=== PATIENT | male | born 1995 | race Caucasian/White ===

== ENCOUNTER 2016-07-01 02:21 | Emergency (ER) | payer MEDICAID ==
--- NOTE | 2016-07-01 02:30 | EDPHY ---
H & P Source: Patient, Police, EMS - Medical/Surgical History Hx Asthma: No Hx Chronic Respiratory Disease: No Hx Diabetes: No Hx Cardiac Disease: No Hx Renal Disease: No Hx Cirrhosis: No Hx Alcoholism: No Hx HIV/AIDS: No Hx Splenectomy or Spleen Trauma: No Other PMH: BOTOX BLADDER INJECTION OCT 02 2013. 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 It is reported by EMS that he was speaking to people at the bus stop saying that he did cocaine and Xanax and drank alcohol. During the time of conversation with other people the bus stop he started to get very lethargic and unresponsive they called 911. EMS arrived he responded to painful stimuli but not verbal stimuli they brought him here in the emergency room. They did give him Narcan which did not benefit him. Upon arrival here in the emergency room he does respond to painful stimuli he is on a full monitor. He appears very sleepy. Past Medical History: Unknown medical history Past Surgical History: Unknown surgical history Social History: Admits to doing cocaine, alcohol, Xanax Family History: Noncontributory ROS REVIEW OF SYSTEMS: A comprehensive 10 point review of systems is otherwise negative aside from elements mentioned in the history of present illness. Exam Constitutional lethargic, triage nursing summary reviewed, vital signs reviewed Eyes normal conjunctivae and sclera, EOMI, 3 mm equal HENT normal inspection, atraumatic, moist mucus membranes, no epistaxis, neck supple/ no meningismus, no raccoon eyes. Respiratory clear to auscultation bilaterally, normal breath sounds, no respiratory distress, no wheezing. Cardiovascular rate normal, regular rhythm, no murmur, no edema, distal pulses normal. Gastrointestinal soft, non-tender, no rebound, no guarding, normal bowel sounds, no distension, no pulsatile mass. Genitourinary no CVA tenderness. Musculoskeletal no midline vertebral tenderness, full range of motion, no calf swelling, no tenderness of extremities, no meningismus, good pulses, neurovascularly intact. Skin pink, warm, & dry, no rash, skin atraumatic. Neurologic lethargic, does not respond to verbal stimuli however does respond to painful stimuli Psychiatric normal mood/affect. Heme/Lymph/Immune no lymphadenopathy. Differential Diagnosis: includes but is not limited to in a particular order, drug overdose, cocaine intoxication, benzodiazepine overdose, alcohol intoxication, polysubstance abuse, intracranial bleed Medical Decision Making: this patient be placed on full athletic monitor, patient had a CT scan of his head to rule out significant trauma. Will check blood work including alcohol level and drug screen. Re-evaluation: CT scan of the head without IV contrast for trauma. The results of the study are negative for acute traumatic injury. The study was read by Dr. Gayle. I viewed the images myself on the PACS system. CT scan of the cervical spine without IV contrast for trauma The results of the study are negative for acute traumatic injury The study was read by Dr. Gayle I viewed the images myself on the PACS system. 0427: Re-examination at this time he is still very sleepy however he does respond to painful stimuli. His alcohol level was very low he is positive for cocaine. he was telling EMS and bystanders at the bus stop that he did Xanax. He is still at this time protecting his airway. He is very sleepy. Will continue to closely monitor. 0547: re-examination at this time he does respond to verbal stimuli. He is still somnolent. Parents at bedside. I have updated them. 0625: this patient is a indwelling Jacques in place at this time. It was noted that this patient was hypertensive at 1 point most likely due to neurogenic bladder retaining urine. He did have Jacques catheter placed a 1000 cc of urine was removed. His blood pressure greatly improved after this. He will need to have his Jacques catheter removed prior to discharge. 0651: Patient signed over to Dr. Alfaro at 7am shift change. Patient still sobering. (Fahad Rodriguez) Constitutional: Initial Vital Signs Temperature (C) 36.3 C 07/01/16 02:31 Heart Rate 73 07/01/16 02:31 Respiratory Rate 16 07/01/16 02:31 Blood Pressure 139/103 H 07/01/16 02:31 O2 Sat (%) 95 07/01/16 02:31 O2 Delivery Mode Nasal Cannula O2 (L/minute) 2 Allergies/Adverse Reactions: No Known Allergies Allergy (Unverified 11/12/13 14:55) Home Medications: Medication Instructions Recorded Cephalexin [Keflex] 500 mg PO QID #40 cap 11/12/13 Dentraline 11/12/13 Gabapentin [Neurontin 100 MG (RX)] 100 mg PO HS 11/12/13 Indomethacin [Indocin 25 mg (RX)] 25 mg PO 11/12/13 Medical Decision Making Other Provider: Patient's care transferred to al at 7:[address] Fahad Rodriguez. I evaluated the patient with him. He is somnolecent but arousable. He will respond to commands. He lifted his arms and head up in the air with painful stimulation. He seems to be improving. We will continue to observe. He admits to taking a large amount of Xanax but it does not appear in his urine. Urinalysis may have been premature compared to his ingestion. 1:15 p.m. the patient is significantly improved. He is waking to verbal stimuli. He is answering questions. He is asking what happened. His parents are here. The patient is not yet ready to be discharged. We will continue to observe. 2:50 p.m. the patient is doing much better. He is easily arousable. He is able to sit up in his wheelchair safely. Parents are eager to take him home. ( Jose Miguel Alfaro) - Data Points Laboratory Results: Laboratory Results 07/01/16 02:20 07/01/16 02:20 07/01/16 07/01/16 03:35 02:20 WBC 9.26 10^3/uL (3.80-9.50) RBC 5.45 10^6/uL (4.40-6.38) Hgb 17.1 g/dL (13.7-17.5) Hct 49.6 % (40.0-51.0) MCV 91.0 fL (81.5-99.8) MCH 31.4 pg (27.9-34.1) MCHC 34.5 g/dL (32.4-36.7) RDW 13.1 % (11.5-15.2) Plt Count 223 10^3/uL (150-400) MPV 10.1 fL (8.7-11.7) Neut % (Auto) 69.4 % (39.3-74.2) Lymph % (Auto) 19.1 % (15.0-45.0) Wilson % (Auto) 9.3 % (4.5-13.0) Eos % (Auto) 1.5 % (0.6-7.6) Baso % (Auto) 0.5 % (0.3-1.7) Nucleat RBC Rel Count 0.0 % (0.0-0.2) Absolute Neuts (auto) 6.42 10^3/uL (1.70-6.50) Absolute Lymphs (auto) 1.77 10^3/uL (1.00-3.00) Absolute Monos (auto) 0.86 H 10^3/uL (0.30-0.80) Absolute Eos (auto) 0.14 10^3/uL (0.03-0.40) Absolute Basos (auto) 0.05 10^3/uL (0.02-0.10) Absolute Nucleated RBC 0.00 10^3/uL (0-0.01) Immature Gran % 0.2 % (0.0-1.1) Immature Gran # 0.02 10^3/uL (0.00-0.10) Sodium 141 mEq/L (134-144) Potassium 4.2 mEq/L (3.5-5.2) Chloride 104 mEq/L (97-110) Carbon Dioxide 22 mEq/l (22-31) Anion Gap 15 mEq/L (8-16) BUN 16 mg/dL (7-23) Creatinine 1.2 mg/dL (0.7-1.3) Estimated GFR > 60 Glucose 81 mg/dL (70-100) Calcium 9.6 mg/dL (8.5-10.4) Salicylates < 1.0 L mg/dL (2.0-20.0) Urine Opiates Screen NEGATIVE (NEGATIVE) Acetaminophen < 10 L mcg/mL (10.0-30.0) Urine Barbiturates NEGATIVE (NEGATIVE) Ur Phencyclidine Scrn NEGATIVE (NEGATIVE) Ur Amphetamine Screen NEGATIVE (NEGATIVE) U Benzodiazepines Scrn NEGATIVE (NEGATIVE) Urine Cocaine Screen NON-NEGATIVE H (NEGATIVE) U Marijuana (THC) Screen NEGATIVE (NEGATIVE) Ethyl Alcohol 20 H mg/dL (0-10) Medications Given: Discontinued Medications Sodium Chloride (Ns) 1,000 mls @ 0 mls/hr IV ONCE ONE PRN Reason: Wide Open Stop: 07/01/16 02:34 Last Admin: 07/01/16 02:46 Dose: 1,000 mls Sodium Chloride (Ns) 1,000 mls @ 0 mls/hr IV ONCE ONE PRN Reason: Wide Open Stop: 07/01/16 04:32 Last Admin: 07/01/16 05:30 Dose: 1,000 mls Departure - Departure Disposition: Home, Routine, Self-Care Clinical Impression: Cocaine abuse, Benzodiazepine abuse Alcoholic intoxication Qualifiers: Complication of substance-induced condition: uncomplicated Qualifier Code: ( F10.120) Alcohol abuse with intoxication, uncomplicated Condition: Fair Instructions: Alcohol Intoxication (ED), Benzodiazepine Abuse (ED), Cocaine Abuse (ED) Additional Instructions: 1. Stay well-hydrated drink lots of fluids. Referrals: Derrick Jeronimo MD [Primary Care Provider] - As per Instructions
[2016-07-01] MEDS ORDERED: NS 1,000 ML IV ONE ×2 (02:33→04:31)
[2016-07-01 02:51] LABS: % IMMATURE GRANULYOCYTES 0.2 % (0.0-1.1); ABSOLUTE IMMATURE GRANULOCYTES 0.02 10^3/uL (0.00-0.10); ADD DIFF? NO; ADD MORPH? NO; ADD SCAN? NO; ATYPICAL LYMPHOCYTE FLAG 0 (0-99); FRAGMENT RBC FLAG 0 (0-99); HEMATOCRIT 49.6 % (40.0-51.0); HEMOGLOBIN 17.1 g/dL (13.7-17.5); LEFT SHIFT FLG 0 (0-99); LIPEMIA HEMOLYSIS FLAG 90 (0-99); MEAN CELL HEMOGLOBIN 31.4 pg (27.9-34.1); MEAN CELL HEMOGLOBIN CONCENTR. 34.5 g/dL (32.4-36.7); MEAN PLATELET VOLUME 10.1 fL (8.7-11.7); PLATELET CLUMPS FLAG 10 (0-99); PLATELET COUNT 223 10^3/uL (150-400); RED BLOOD CELL COUNT 5.45 10^6/uL (4.40-6.38); RED CELL DISTRIBUTION WIDTH 13.1 % (11.5-15.2)
[2016-07-01 03:16] LABS: ANION GAP 15 mEq/L (8-16); CALCIUM 9.6 mg/dL (8.5-10.4); CARBON DIOXIDE 22 mEq/l (22-31); CHLORIDE 104 mEq/L (97-110); CREATININE 1.2 mg/dL (0.7-1.3); ETHANOL SERUM 20 mg/dL (0-10); GLOMERULAR FILTRATION RATE > 60; GLUCOSE 81 mg/dL (70-100); POTASSIUM 4.2 mEq/L (3.5-5.2); SALICYLATE < 1.0 mg/dL (2.0-20.0); SODIUM 141 mEq/L (134-144)
[2016-07-01] MEDS ORDERED: NALOXONE HCL 0.4 MG/ML INJ ONE (04:20)
[2016-07-01] MEDS ORDERED: ONDANSETRON 4 MG/2 ML VIAL ONE (04:23)
[2016-07-01 07:18] VITALS: RESP 16
[2016-07-01 08:54] VITALS: O2SAT 97
[2016-07-01 11:21] VITALS: PULSE 57
--- NOTE | 2016-07-01 12:26 | CT ---
Unenhanced CT Scan of the Brain Clinical History: 21-year-old male who was at the bus stop this morning and indicated that he had cocaine and Xanax, and was also inebriated, and then was found subsequently slumped over in his wheelchair, and is currently unresponsive. Technique: Standard unenhanced axial CT images were acquired from the skull base through the skull vertex, reformatted at 5.00 and 1.50 mm increments, and reviewed in bone, brain, and subdural windows. The DFOV is 26 cm. Parasagittal and paracoronal reconstructed images were reviewed on the workstation. A dose reduction protocol was used. Comparison Studies: This study is compared with previous CT imaging of the brain and cervical spine dated March 25, 2014 and January 28, 2015, and also MR imaging of the cervical spine dated March 25, 2014. Findings: Again, the ventricles and basilar cisterns are normal in size and symmetrical in configuration. There is no midline shift, or other evidence of mass effect. There is no acute or subacute abnormal intra- or extraaxial blood collection or infarction. The brainstem and cerebellum are normal. The craniocervical junction, sella turcica, pineal gland, and the orbits are unremarkable. The mastoids are patent. There is minimal mucosal thickening in the floor of the right maxillary sinus. The other paranasal sinuses are patent. There is no acute skull fracture. Impression: There is no acute intracranial abnormality. If there is further clinical concern regarding the patient's brain or cervical spine, MR imaging could be considered. I provided a preliminary interpretation to Dr. Fahad Rodriguez at 4:00 a.m. on Sunday, July 01, 2016 regarding the above findings. My final interpretation is concordant with my initial impression. [id number] POS 99 MTDD
--- NOTE | 2016-07-01 12:27 | CT ---
Unenhanced CT Scan of the Cervical Spine Clinical History: 21-year-old male who sustained prior remote trauma in [place] and has had a cervical arthrodesis. He was at the bus stop this morning and indicated that he had taken cocaine and Xanax, and was also inebriated, and then was found slumped over in his wheelchair, and is currently unresponsive. Technique: Standard unenhanced axial CT images were acquired from the level of the clivus caudally to the caudal portion of T2, reformatted at 0.60 and 1.50 mm increments, and reviewed in bone, soft tissue, and lung windows. Parasagittal and paracoronal reconstructed images were reviewed on the workstation. The DFOV is 15.9 cm. A dose reduction protocol was used. Comparison Studies: This study is compared with previous CT imaging of the brain and cervical spine dated March 25, 2014 and January 28, 2015, and also with MR imaging of the cervical spine dated March 25, 2014. Findings: As on the preceding studies, the patient has had arthrodesis from C5- T1 with a bony cage noted from the caudal portion of C5 through the cephalad aspect of the T1 centrum and an anterior cervical fusion plate secured by transcervical screws terminating in the C5 and T1 centra. There is a large incompletely-bridging osteophyte emanating off the anterosuperior C5 centrum, extending to the anterior margin of C4. There is no acute fracture or dislocation. There is no facet malalignment. The interspinous distances are normal. The prevertebral soft tissues are normal. The craniocervical junction is normal. The atlantoaxial alignment and the base and tip of the dens are normal. The predental space is normal. There is no prevertebral hematoma, epidural hematoma, or secondarily acquired canal stenosis. Impression: Sequela of prior remote postsurgical arthrodesis from C5-T1, stable from exams in 2013 and 2014, with no acute cervical osseous abnormality identified. If there is further clinical concern regarding the patient's brain or cervical spine, MR imaging could be considered. I provided a preliminary interpretation to Dr. Fahad Rodriguez at 4:00 a.m. on July 01, 2016 regarding the above findings. My final interpretation is concordant with my initial impression. [id number] POS 99 MTDD
[2016-07-01 14:54] VITALS: BP 118/75; TEMP 98.2
== END 2016-07-01 14:53 | disposition home or self-care (01) ==
LOC: EDUNIT#
DX: F14.10 Cocaine abuse, uncomplicated (principal); F13.10 Sedative, hypnotic or anxiolytic abuse, uncomplicated; F10.120 Alcohol abuse with intoxication, uncomplicated
CPT/HCPCS: 80305; G0480; J2310; J2405

== ENCOUNTER 2016-09-10 14:11 | Emergency (ER) | payer MEDICAID ==
[2016-09-10 14:19] VITALS: BP 89/60; PULSE 96; RESP 16; TEMP 98.1; O2SAT 92
--- NOTE | 2016-09-10 14:28 | EDPHY ---
H & P Time Seen by Provider: 09/10/16 14:22 HPI/ROS: CHIEF COMPLAINT: Right elbow pain HISTORY OF PRESENT ILLNESS: 21-year-old male history of C7 paraplegia, wheelchair-bound, sustained a mechanical fall out of his wheelchair yesterday onto his right elbow. He has been able to continue pushing myself in his wheelchair but notes dorsal soft tissue swelling and pain with range of motion. He also sustained an abrasion to the dorsal elbow. Tetanus up-to-date. No proximal distal pain or injury. Not a syncopal episode. PRIMARY CARE PROVIDER: Dr. Derrick Jeronimo PHYSICAL EXAM (Prior to examination, patient consented to physical exam, hands were washed and my usual and customary physical exam procedures followed) 1) GENERAL: Well-developed, well-nourished, alert and oriented. Appears to be in no acute distress. 2) HEAD: Normocephalic 3) HEENT: Pupils equal, round, reactive to light bilaterally. 4) LUNGS: Breathing comfortably. 5) MUSCULOSKELETAL: Right dorsal elbow soft tissue swelling and abrasion. Tender to palpation radial head. Full range of motion albeit with pain. Soft compartments. Normal coloration. No erythema. No induration. No signs of cellulitis or septic bursitis. 6) SKIN: abrasion dorsal elbow 7) VASCULAR: pulses and cap refill present are brisk 8) NEUROLOGIC: Radial, ulnar, median nerve function intact with no deficits appreciated on exam DIFFERENTIAL DIAGNOSIS: in no particular order including but not limited to fracture, sprain, compartment syndrome Xray of the right elbow interpreted by myself: no definitive acute osseous abnormality . Smoking Status: Never smoked Constitutional: Initial Vital Signs Temperature (C) 36.7 C 09/10/16 14:16 Heart Rate 96 09/10/16 14:16 Respiratory Rate 16 09/10/16 14:16 Blood Pressure 89/60 L 09/10/16 14:16 O2 Sat (%) 92 09/10/16 14:16 O2 Delivery Mode Room Air Allergies/Adverse Reactions: No Known Allergies Allergy (Unverified 11/12/13 14:55) Home Medications: Medication Instructions Recorded Dentraline 11/12/13 MDM/Departure - MDM Diagnostics: Images reviewed myself ED Course/Re-evaluation: Patient re-evaluated with serial exams. Discussed his negative imaging results. Discussed possibility of occult fracture. Because he is wheelchair- bound do not think that placed the patient a sling is appropriate as he would be unable to self transport. Did recommend he follow-up with [facility], ice packs on the area. He has no signs septic bursitis. Acetaminophen and ibuprofen for pain control. - Depart Disposition: Home, Routine, Self-Care Clinical Impression: Right elbow pain Abrasion of right elbow Qualifiers: Encounter type: initial encounter Qualified Code(s): S50.311A - Abrasion of right elbow, initial encounter Condition: Good Instructions: Abrasion (ED), Elbow Sprain (ED) Additional Instructions: Return to the ER if you develop redness, swelling, discharge, warmth to the wound, red streaks going up your arm , or any other symptoms that concern you. Referrals: To Verma MD [Medical Doctor] - 2-3 days without fail (Dr. To Verma is an orthopedic surgeon at [facility])
== END 2016-09-10 14:57 | disposition home or self-care (01) ==
DX: S50.311A Abrasion of right elbow, initial encounter (principal); W05.0XXA Fall from non-moving wheelchair, initial encounter

== ENCOUNTER → 2016-11-24 | Outpatient (CLI) | payer MEDICAID, OTHER | LOC: FIMAGING 16:11 | PROVIDERS: ATTEND Physician Assistant | DX: M25.521 Pain in right elbow (principal); M79.89 Other specified soft tissue disorders ==

== ENCOUNTER → 2017-06-27 | Outpatient (CLI) | payer MEDICAID ==
[~2017-06-27] MED LIST: GADOBUTROL 10 ML VIAL IVP ONE
== END ==
LOC: FIMAGING 19:39
PROVIDERS: ATTEND Internal Medicine Infectious Disease
DX: Z48.89 Encounter for other specified surgical aftercare (principal); M70.21 Olecranon bursitis, right elbow; M86.9 Osteomyelitis, unspecified
CPT/HCPCS: A9585

== ENCOUNTER 2017-07-07 08:14 | Inpatient (IN) | payer OTHER, MEDICAID ==
[~2017-07-07 08:14] MED LIST changes: -GADOBUTROL 10 ML VIAL IVP ONE; +LR 1,000 ML IV ONE; +ceFAZolin 2 GM/SWFI 2 GM/20 ML SYR IVP ONE
--- NOTE | 2017-07-07 08:34 | EDPHY ---
ED Progress Note Narrative: Patient is here for orthopedic procedure preoperative only. He is alert and normally conversant. He declines medical screening examination by ER physician.
[2017-07-07] MEDS ORDERED: ceFAZolin 2 GM/SWFI 20 ML SYR IVP ONE (08:59)
--- NOTE | 2017-07-07 09:00 | PDANEPAE ---
ANE History of Present Illness 22 year old paraplegic male presents for Washout of elbow. ANE Past Medical History - Cardiovascular History Hx Hypertension: No Hx Arrhythmias: No Hx Chest Pain: No Hx Coronary Artery / Peripheral Vascular Disease: No Hx CHF / Valvular Disease: No Hx Palpitations: No - Pulmonary History Hx COPD: No Hx Asthma/Reactive Airway Disease: No Hx Recent Upper Respiratory Infection: No Hx Oxygen in Use at Home: No Hx Sleep Apnea: No Sleep Apnea Screening Result - Last Documented: Negative Pulmonary History Comment: limited ability to cough due to spinal cord injury - Neurologic History Hx Cerebrovascular Accident: No Hx Seizures: No Hx Dementia: No Neurologic History Comment: spinal cord injury - Endocrine History Hx Diabetes: No - Renal History Hx Renal Disorders: Yes Renal History Comment: neurogenic bladder - Liver History Hx Hepatic Disorders: No - Neurological & Psychiatric Hx Hx Neurological and Psychiatric Disorders: No - Cancer History Hx Cancer: No - Congenital Disorder History Hx Congenital Disorders: No - GI History Hx Gastrointestinal Disorders: Yes Gastrointestinal History Comment: acid reflux - Other Health History Other Health History: USING RX FOR CONCENTRATION AT SCHOOL. PE 2012 - Chronic Pain History Chronic Pain: Yes - Surgical History Prior Surgeries: neck C5-T1 2012. CYSTO WITH bladder botox X2 ANE Review of Systems Review of Systems: - Exercise capacity Exercise capacity: limited by disability ANE Patient History - Allergies Allergies/Adverse Reactions: No Known Allergies Allergy (Verified 07/07/17 08:16) - Home Medications Home medications: home medication list seen and reviewed Home Medications: Vesicare 10 mg 07/06/17 [Last Taken Unknown] - NPO status NPO Status: no food or drink >8 hours NPO Since - Liquids (Date): 07/06/17 NPO Since - Liquids (Time): 23:00 NPO Since - Solids (Date): 07/06/17 NPO Since - Solids (Time): 23:00 - Anes Hx Anes Hx: no prior problems - Smoking Hx Smoking Status: Never smoked Marijuana use: No - Alcohol Use Alcohol Use: None - Family Anes Hx Family Anes Hx: neg - N/A Family Hx Anesthesia Complications: none ANE Labs/Vital Signs - Vital Signs Vital Signs: reviewed preoperatively; see RN documention for details Blood Pressure: 89/56 Heart Rate: 50 Respiratory Rate: 14 O2 Sat (%): 94 Height: 185.42 cm Weight: 63.503 kg ANE Physical Exam - Airway Neck exam: decreased ROM Mallampati Score: Class 2 Mouth exam: normal dental/mouth exam - Pulmonary Pulmonary: no respiratory distress - Cardiovascular Cardiovascular: regular rate and rhythym - ASA Status ASA Status: III ANE Anesthesia Plan Anesthesia Plan: GA w LMA Total IV Anesthesia: No
--- NOTE | 2017-07-07 10:16 | PDHPUP ---
History & Physical Update H&P update statement: This history and physical update is based on an assessment of the patient which was completed after admission or registration (within 24 hours), but prior to the surgery/procedure. H&P update: H&P reviewed & patient examined, no change in patient's condition since H&P completed
[2017-07-07] MEDS ORDERED: MIDAZOLAM 2 MG/2 ML VIAL ONE (10:27)
[2017-07-07] MEDS ORDERED: fentaNYL 100 MCG/2 ML INJ ONE ×2 (10:27→12:28)
[2017-07-07] MEDS ORDERED: PROPOFOL 200 MG/20 ML VIAL ONE (10:27)
[2017-07-07] MEDS ORDERED: ONDANSETRON DISINTEGRATING 4 MG TAB PO PRN (10:29)
[2017-07-07] MEDS ORDERED: ONDANSETRON 4 MG/2 ML VIAL IVP PRN ×2 (10:29→11:25)
[2017-07-07] MEDS ORDERED: LR 1,000 ML IV SCH (10:30)
[2017-07-07] MEDS ORDERED: BUPIVACAINE/EPI 0.5% 30 ML SDV ONE (11:06)
[2017-07-07] MEDS ORDERED: HYDROmorphONE/DILAUDID 1 MG/ML INJ IVP PRN (11:25)
[2017-07-07] MEDS ORDERED: PHENYLEPHRINE HCL 100 MCG/ML SYR IVP PRN (11:25)
[2017-07-07] MEDS ORDERED: NALOXONE HCL 0.4 MG/ML INJ IVP PRN (11:25)
[2017-07-07] MEDS ORDERED: DIAZEPAM 10 MG/2 ML SYR IVP PRN (11:25)
[2017-07-07] MEDS ORDERED: OXYCODONE/APAP 5/325 TAB PO PRN (11:25)
[2017-07-07] MEDS: fentaNYL 100 MCG/2 ML INJ IVP PRN ×2 (12:33→12:45)
[2017-07-07] MEDS ORDERED: KETOROLAC 15 MG/1 ML SDV ONE (12:37)
[2017-07-07] MEDS ORDERED: KETOROLAC 30 MG/1 ML SDV ONE (12:41)
[2017-07-07] MEDS: KETOROLAC 30 MG/1 ML SDV IVP PRN ×2 (12:46→19:43)
--- NOTE | 2017-07-07 13:30 | GOP ---
[f rep st] OPERATIVE REPORT DATE OF OPERATION: 07/07/2017 SURGEON: Amrit Kay MD ANESTHESIA: General. PREOPERATIVE DIAGNOSIS: 1. Right elbow open wound. 2. Right elbow olecranon osteomyelitis. 3. Right elbow septic olecranon bursitis POSTOPERATIVE DIAGNOSIS: 1. Right elbow open wound. 2. Right elbow olecranon osteomyelitis. 3. Right elbow septic olecranon bursitis PROCEDURE PERFORMED: 1. Irrigation and debridement of skin and subcutaneous tissue, fascia and bone of the right elbow along with opening of bone cortex for osteomyelitis of the olecranon. 2. Irrigation and debridement of right olecranon bursa. 3. Application of negative pressure wound VAC device less than 50 sq/cm. FINDINGS: ESTIMATED BLOOD LOSS: 5 cc. INDICATIONS: This patient is a 22-year-old male who is a C7 paraplegic. He is well known to our practice. He had several I and D's of his infected right olecranon bursa performed during the spring and summer last year. At the last I and D, he had some issues healing the wound. The wound was nearly healed, however, recently opened up again. He has a small draining wound. He was seen by the ID doctors. MRI was ordered. The MRI showed edema of the bone consistent with possible osteomyelitis with extension to the open wound. He was thus indicated for debridement of the open wound. I discussed with the patient and his parents the risks and benefits of operative versus nonoperative treatment. Risks include pain, wound healing problems, recurrent infection, stiffness, need for further surgeries. The patient and his parents both understood and wished to proceed. DESCRIPTION OF PROCEDURE: The patient was seen in the preop holding area. Consent was signed after he was given the opportunity to ask questions. All the questions were answered. Consent signed. Surgical site was marked. He was then taken to the operative suite. Care was taken to transfer the patient from the [facility] to the operating table. Care was taken to pad all bony prominences prior to induction. Anesthesia was induced by the anesthesia team. Time-out was called including surgical and anesthesia teams confirming the surgical site and procedure to be performed. The right upper extremity was prepped and draped in the usual sterile fashion. The arm was placed over the chest. The arm was elevated to exsanguinate and tourniquet inflated to 250 mmHg. IV antibiotics were not given until cultures were taken. There was about a 1 x 1 cm open draining wound in the center of the olecranon. I ellipsed out the diseased appearing skin. I extended the incision proximally and distally. I dissected down to the tissue where that was a communicating sinus. This was radically excised. Part of this was sent for cultures as a superficial culture. Some of the deeper bursa was then excised circumferentially and this was sent as a deep culture. Then, when I got down to the bone, there was a grayish appearance of the bone directly communicating with the sinus. The bone cortex was opened with a straight osteotome. Then, several samples were taken for culture and pathology. At this point, he was then irrigated copiously with sterile saline and debrided with a curette throughout the entire wound. Then, the wound was closed with interrupted #2 nylons. After this was done, an incisional wound VAC was applied. Sterile dressing was applied. The patient tolerated the procedure well and was taken to the PACU in stable condition. POSTOPERATIVE CONDITION: Stable. POSTOPERATIVE PLAN: The patient will be admitted to my service. He will be followed by the ID service in the hospital. We will wait for cultures to come back to decide on antibiotic regimen and placement of a PICC line. /[id number]/MODL MTDD
[2017-07-07] MEDS ORDERED: ceFAZolin 2 GM/DEXTROSE 100 ML IV SCH (15:00)
[2017-07-07] MEDS: ACETAMINOPHEN 325 MG TAB PO SCH ×3 (15:02→21:38)
--- NOTE | 2017-07-07 15:19 | ASMTCMCOM ---
CM Note CM Note Notes: Pt had elbow debridement and currently has wound vac. Ortho MD will determine if pt needs to d/c home w wound vac and would need to let CM know. ID Dr. Whitley indicates pt in need of home IV antibiotics, dosage and medication TBD. [facility] CM to follow. Date Signed: 07/07/2017 03:18 PM Electronically Signed By:RUSLAN Santana
--- NOTE | 2017-07-07 15:23 | POSTANESTH ---
Post Anesthetic Evaluation Cardiovascular Status: Normal, Stable Respiratory Status: Normal, Stable Level of Consciousness/Mental Status: Can Participate in Eval, Alert and Oriented Pain Control: Adequate, Prn Tx Ordered Nausea/Vomiting Control: Adequate, Prn Tx Ordered Complications Possibly Related to Anesthesia: None Noted
--- NOTE | 2017-07-07 15:41 | PCMIDPN ---
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 Kay. Multiple microbiology specimens currently pending. Prior growth of MSSA from abscess over olecranon in October. This would be most likely pathogen in this setting. Will require 6 weeks of IV antibiotic therapy. Begin empiric cefazolin and await cultures to help further define antibiotic choice. Discussed with patient need for PICC line and IV antibiotics as outpatient - risks and benefits of PICC line and IV antibiotics discussed with patient and family. Case management notified. Anticipate likely PICC line placement and hospital discharge on Sunday. Time spent, 30 min, of which greater than half was spent in education/counseling /coordination of care related to right olecranon osteomyelitis and plan of care including outpatient IV antibiotics. 07/07/17 15:38 07/07/17 15:43 07/07/17 15:44 Subjective: Please see my office note dated 12/14/2016 and consultation note of Dr. Velázquez dated 06/15/2017 for details. Patient admitted today for debridement of olecranon osteomyelitis with samples obtained for pathology and culture in the setting of nonhealing bursal wound and recent MRI showing findings compatible with mild osteomyelitis of olecranon process. Operative findings of earlier today reviewed with Dr. Kay. Objective: Vital Signs Temp Pulse Resp BP Pulse Ox 36.8 C 71 16 115/51 L 99 07/07/17 15:31 07/07/17 15:31 07/07/17 15:31 07/07/17 15:31 07/07/17 15:31 07/06/17 07/07/17 07/08/17 05:59 05:59 05:59 Intake Total 650 Output Total 0 Balance 650 Multiple operative culture specimens and Gram stains pending - Physical Exam General Appearance: alert, no apparent distress Cardiac/Chest: regular rate, rhythm, No systolic murmur Extremities: other (Right elbow dressed postoperatively) ICD10 Worksheet Patient Problems: Problems Problem Status Onset Osteomyelitis due to Staphylococcus aureus Acute Osteomyelitis of right elbow Acute Osteomyelitis of left elbow Acute
[2017-07-07] MEDS: ceFAZolin 2 GM/DEXTROSE 100 ML IV SCH (19:02)
[2017-07-07] MEDS: HYDROCODONE/APAP 5/325 TAB PO PRN (21:39)
[2017-07-08] MEDS: ACETAMINOPHEN 325 MG TAB PO SCH ×6 (02:11→19:51)
[2017-07-08] MEDS: HYDROCODONE/APAP 5/325 TAB PO PRN ×3 (02:11→19:50)
[2017-07-08] MEDS: ceFAZolin 2 GM/DEXTROSE 100 ML IV SCH ×3 (02:12→19:53)
[2017-07-08 10:30] LABS: PLATELET COUNT 185 10^3/uL (150-400)
--- NOTE | 2017-07-08 11:30 | ASMTCMCOM ---
CM Note CM Note Notes: Chart reviewed. Patient is a 22 year old male C-7 paraplegic who lives with parents. He is wheelchair bound. 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 [facility] is willing to accept though medicaid co-payments may exist Patient is aware of need for antibiotics. No therapies ordered but patient likely at baseline. CM to follow. Plan home with home infusion. Date Signed: 07/08/2017 11:30 AM Electronically Signed By:Jeanette Coyle RN
[2017-07-08] MEDS ORDERED: NON-FORMULARY NEW DRUG (Solifenacin Succinate [Vesicare] 10 MG) PO SCH (11:45)
[2017-07-08] MEDS: ADDERALL 10 MG TAB PO SCH ×2 (12:05→19:52)
--- NOTE | 2017-07-08 12:12 | SOAPPROG ---
SOAP Progress Note Assessment/Plan: Assessment: POD#1 s/p R elbow I&D for infected olecranon bursa/open wound and olecranon osteomyelitis -doing well -prelim cultures growing S. aureus. This is the same organism as his prior infected bursa in the past Plan: -IV abx and PICC line per ID. Appreciate care of the ID service -pain ctrl -cont home meds -PT/OT -anticipate d/c Sun/ -regarding the incisional wound vac, I would ideally like it on until Sunday. Use of NPWT on closed incisions has been shown to reduce the risk of wound infection, wound dehiscence, and seroma in randomized, controlled studies of patients in orthopedic settings. If it is possible to transition the patient to a smaller device for home on the day of his discharge, then I would see him in clinic on Sunday and remove the vac. If this is not possible, then the vac can be removed on the day of his discharge and a dressing placed. I will still see him on Sunday for a wound check. 07/08/17 11:46 Subjective: Working with PT/OT this am. In good spirits. Pain well ctrl'd. Seen by ID yesterday. Objective: Vital Signs Temp Pulse Resp BP Pulse Ox 36.7 C 60 14 110/56 L 95 07/08/17 11:20 07/08/17 11:20 07/08/17 11:20 07/08/17 11:20 07/08/17 11:20 Microbiology 07/07/17 11:19 Gram Stain - Final Elbow - Tissue 07/07/17 11:19 Gram Stain - Final Elbow - Tissue 07/07/17 11:19 Gram Stain - Final Elbow - Tissue 07/07/17 11:19 Mycobacterial Smear (VARSHA) - Final Elbow - Tissue 07/07/17 11:19 Mycobacterial Smear (VARSHA) - Final Elbow - Tissue 07/07/17 11:19 Mycobacterial Smear (VARSHA) - Final Elbow - Tissue Laboratory Results 07/08/17 10:05 07/08/17 10:05 07/07/17 07/08/17 07/09/17 05:59 05:59 05:59 Intake Total 1830 Output Total 0 Balance 1830 Gen: NAD, in wheelchair R elbow -wound vac in place, holding suction. Serosang vac aspirate -ROM of elbow w/ only mild pain -NV intact distally - Time Spent With Patient Time Spent With Patient: 15min - Pending Discharge Pending Discharge Within 24 Hours: Yes Pending Discharge Within 48 Hours: Yes Pending Discharge Date: 07/09/17 Pending Discharge Time: 11:00 ICD10 Worksheet Patient Problems: Problems Problem Status Onset Osteomyelitis due to Staphylococcus aureus Acute Osteomyelitis of right elbow Acute Osteomyelitis of left elbow Acute
--- NOTE | 2017-07-08 15:12 | ASMTCMCOM ---
CM Note CM Note Notes: Per Dr. Kay, patient would benefit from closed wound vac system to maintain integrity of wound until seen in follow up. Orders faxed to [facility]. Confirmed receipt Unlikely approval due to wound closure after I&D and insurance. Will follow. Date Signed: 07/08/2017 03:12 PM Electronically Signed By:Jeanette Coyle RN
--- NOTE | 2017-07-08 16:49 | PCMIDPN ---
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 Bursal and bone cultures are no growth to date. Will continue cefazolin pending susceptibility profile. If MSSA, likely will transition to ceftriaxone for once daily administration as outpatient to complete 6 weeks of therapy. PICC line in a.m.. Plan weekly CBC, CMP, and CRP. 07/08/17 16:47 Subjective: Patient with mild right upper extremity pain. No itching, rash or diarrhea with cefazolin. Objective: Vital Signs Temp Pulse Resp BP Pulse Ox 36.6 C 65 14 101/58 L 95 07/08/17 15:33 07/08/17 15:33 07/08/17 15:33 07/08/17 15:33 07/08/17 15:33 Microbiology 07/07/17 11:19 Gram Stain - Final Elbow - Tissue 07/07/17 11:19 Gram Stain - Final Elbow - Tissue 07/07/17 11:19 Gram Stain - Final Elbow - Tissue 07/07/17 11:19 Mycobacterial Smear (VARSHA) - Final Elbow - Tissue 07/07/17 11:19 Mycobacterial Smear (VARSHA) - Final Elbow - Tissue 07/07/17 11:19 Mycobacterial Smear (VARSHA) - Final Elbow - Tissue Laboratory Results 07/08/17 10:05 07/08/17 10:05 07/07/17 07/08/17 07/09/17 05:59 05:59 05:59 Intake Total 1830 Output Total 0 Balance 1830 C-Reactive Protein < 5.0 mg/L (<10.0) 07/08/17 10:05 Cefazolin # 2 Superficial culture with growth of Staphylococcus aureus Bursal and bone culture no growth today - Physical Exam General Appearance: alert, no apparent distress EENT: No scleral icterus, No thrush Cardiac/Chest: regular rate, rhythm, No systolic murmur Extremities: other (Right elbow dressed postoperatively) Abdomen: non-tender, No distended ICD10 Worksheet Patient Problems: Problems Problem Status Onset Osteomyelitis due to Staphylococcus aureus Acute Osteomyelitis of right elbow Acute Osteomyelitis of left elbow Acute
[2017-07-09] MEDS: KETOROLAC 30 MG/1 ML SDV IVP PRN (00:26)
[2017-07-09] MEDS: ACETAMINOPHEN 325 MG TAB PO SCH ×3 (03:20→10:14)
[2017-07-09] MEDS: ceFAZolin 2 GM/DEXTROSE 100 ML IV SCH (03:21)
--- NOTE | 2017-07-09 07:00 | SOAPPROG ---
SOAP Progress Note Assessment/Plan: Assessment: POD#2 s/p R elbow I&D for infected olecranon bursa/open wound and olecranon osteomyelitis -doing well -prelim cultures growing S. aureus. This is from the superficial bursal sample. Abx sensitivity not reported yet. Plan: -IV abx and PICC line per ID. Appreciate care of the ID service -pain ctrl -cont home meds -PT/OT -anticipate possible d/c today -f/u with me in clinic on Thursday 07/13 at 1:15p -regarding the incisional wound vac, I would ideally like it on until Sunday. Use of NPWT on closed incisions has been shown to reduce the risk of wound infection, wound dehiscence, and seroma in randomized, controlled studies of patients in orthopedic settings. If it is possible to transition the patient to a smaller device for home on the day of his discharge, then I would see him in clinic on Sunday and remove the vac. If this is not possible, then the vac can be removed on the day of his discharge and a dressing placed. I will still see him on Sunday for a wound check. 07/09/17 06:57 Subjective: Doing well. Sleeping this morning. No issues per nursing staff. Objective: Vital Signs Temp Pulse Resp BP Pulse Ox 36.7 C 77 19 126/84 H 92 07/09/17 00:00 07/09/17 00:00 07/09/17 00:00 07/09/17 00:00 07/09/17 00:00 Microbiology 07/07/17 11:19 Gram Stain - Final Elbow - Tissue 07/07/17 11:19 Gram Stain - Final Elbow - Tissue 07/07/17 11:19 Gram Stain - Final Elbow - Tissue 07/07/17 11:19 Mycobacterial Smear (VARSHA) - Final Elbow - Tissue Laboratory Results 07/08/17 10:05 07/08/17 10:05 07/08/17 07/09/17 07/10/17 05:59 05:59 05:59 Intake Total 1830 2000 Output Total 0 0 Balance 1830 1999 R elbow -vac in place, holding suction -ROM of elbow with minimal pain - Time Spent With Patient Time Spent With Patient: 10 min - Pending Discharge Pending Discharge Within 24 Hours: Yes Pending Discharge Date: 07/10/17 Pending Discharge Time: 11:00 ICD10 Worksheet Patient Problems: Problems Problem Status Onset Osteomyelitis due to Staphylococcus aureus Acute Osteomyelitis of right elbow Acute Osteomyelitis of left elbow Acute
[2017-07-09 08:36] VITALS: BP 101/60; PULSE 54; RESP 16; TEMP 98; O2SAT 94
[2017-07-09] MEDS: ADDERALL 10 MG TAB PO SCH (08:41)
[2017-07-09] MEDS: HYDROCODONE/APAP 5/325 TAB PO PRN (08:47)
[2017-07-09] MEDS ORDERED: SOLIFENACIN SUCCINATE 5 MG TAB PO SCH (09:00)
[2017-07-09] MEDS ORDERED: ALTEPLASE 2 MG VIAL IVP PRN (10:03)
--- NOTE | 2017-07-09 10:08 | PDIAF ---
- Diagnosis Diagnosis: Osteomyelitis right olecranon Code Status: Full Code - Medication Management Discharge Medications: Medications to Continue on Transfer Solifenacin Succinate [Vesicare] 10 mg PO DAILY 07/06/17 [Last Taken 07/06/17] Amphet Asp and D/Amphet [Adderall 10 MG (*)] 10 mg PO BID 07/07/17 [Last Taken 07/06/17 PM] Acetaminophen [Tylenol 325mg (*)] 325 mg PO Q4HRS tab 07/08/17 [Last Taken Unknown] Amphet Asp and D/Amphet [Adderall 10 MG (*)] 10 mg PO BID tab 07/08/17 [Last Taken Unknown] Hydrocodone/APAP 5/325 [[place] 5/325 (*)] 1 - 2 tab PO Q4HRS PRN tab 07/08/17 [ Last Taken Unknown] Solifenacin Succinate [Vesicare 5 MG (*)] 10 mg PO DAILY tab 07/08/17 [Last Taken Unknown] Project Manager/Design Manager Antibiotics: Ceftriaxone 2 g IV q 24 Project Manager/Design Manager Antibiotic Stop Date: 08/19/17 Discharge Medications: Refer to the Discharge Home Medication list for PRN reason. PICC Care - Routine: Yes - Orders Services needed: Home Senior Living Care Face to Face: I certify that this patient was under my care and that I had the required [id number] encounter meeting the encounter requirements on the discharge day. My findings support the fact that the patient is homebound as defined in Home Care Face to Face Continued: CMS Chapter 7 Medicare Benefits Manual 30.1.1 , The condition of the patient is such that there exists a normal inability to leave home and consequently, leaving home would require a considerable and taxing effort. Isolation Type: None Diet Recommendation: no restrictions on diet Diet Texture: Regular Texture Diet - Labs/Radiology CBC w/diff Date: 07/11/17 (weekly q Sun) CMP Date: 07/11/17 (weekly q Sun) Call or Fax Lab and Imaging Results to: Dr. Whitley, - Follow Up Care Current Providers and Referrals: Derrick Jeronimo MD [Primary Care Provider] - Eulogio Whitley MD [Medical Doctor] - 07/16/17 2:00 pm
[2017-07-09] MEDS ORDERED: cefTRIAXone 2 GM in STERILE WATER INJ 20 ML IV SCH (10:30)
--- NOTE | 2017-07-09 14:24 | ASMTCMCOM ---
CM Note CM Note Notes: Patient medically cleared for discharge to home with infusion services and [facility] RN, wound vac deferred per MD at this point and patient has follow up on Sunday. Address and phone verified with patient. Final orders via [employer]. Home with services. Date Signed: 07/09/2017 02:22 PM Electronically Signed By:Jeanette Coyle RN
--- NOTE | 2017-07-09 14:36 | PCMIDPN ---
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 Will transition cefazolin to ceftriaxone for once daily administration after hospital discharge. Side effects of ceftriaxone and PICC line were reviewed with patient today. Follow- up in our office next week for continued care. Time spent, 15 min, of which greater than half was spent in education / counseling / coordination of care related to right olecranon osteomyelitis and outpatient IV antibiotics. 07/09/17 14:34 Subjective: Patient without specific complaints. Objective: Vital Signs Temp Pulse Resp BP Pulse Ox 36.7 C 54 L 16 101/60 94 07/09/17 08:00 07/09/17 08:00 07/09/17 08:00 07/09/17 08:00 07/09/17 08:00 Microbiology 07/07/17 11:19 Gram Stain - Final Elbow - Tissue 07/07/17 11:19 Gram Stain - Final Elbow - Tissue 07/07/17 11:19 Gram Stain - Final Elbow - Tissue 07/07/17 11:19 Mycobacterial Smear (VARSHA) - Final Elbow - Tissue Laboratory Results 07/08/17 10:05 07/08/17 10:05 07/08/17 07/09/17 07/10/17 05:59 05:59 05:59 Intake Total 1830 2000 Output Total 0 0 Balance 1830 1999 C-Reactive Protein < 5.0 mg/L (<10.0) 07/08/17 10:05 Cefazolin # 2 Superficial culture with growth of MSSA deep bursal and olecranon cultures no growth - Physical Exam General Appearance: alert, no apparent distress Extremities: inflammation ( right elbow dressed postoperatively) ICD10 Worksheet Patient Problems: Problems Problem Status Onset Osteomyelitis due to Staphylococcus aureus Acute Osteomyelitis of right elbow Acute Osteomyelitis of left elbow Acute
[2017-07-09] MEDS ORDERED: LIDOCAINE 1% 300 MG/30 ML SDV ONE (17:45)
--- NOTE | 2017-07-10 09:16 | ASDISCHSUM ---
Discharge Information Plan Status:Home with Home Health Medically Cleared to Leave: Discharge Date:07/09/2017 02:41 PM D/C Disposition:Home Health Service ADT D/C Disposition:Home, Routine, Self-Care Projected Discharge Date:07/09/2017 11:00 AM Transportation at D/C: Discharge Delay Reason: Follow-Up Date:07/09/2017 11:00 AM Discharge Slot: Final Diagnosis: Placement Information Referral Type:Home Infusion Referral ID:[id number] Provider Name:[facility] Address [address] Address 2: City:[place] Selection Factors: State:[place] Referral Type:*Home Health Care Services Referral ID:[id number] Provider Name:[facility] Address 1:[address] Address 2: City:[place] Selection Factors: State:[place] Patient Contact Information Contact Name:EVELIN Relationship:Mother Address:[address] Work Phone: City:[place] Alternate Phone: State/Zip Code:[place] [address] Email: Financial Information Financial Class:HMO and PPO Plans Primary Plan Desc:[employer] PPO POS HMO SIG ADM Primary Plan Number:[id number] Secondary Plan Desc:MED[place] Secondary Plan Number:[id number] Assessment Information [facility] CM Progress Note CM Note CM Note Notes: Pt had elbow debridement and currently has wound vac. Ortho MD will determine if pt needs to d/c home w wound vac and would need to let CM know. ID Dr. Whitley indicates pt in need of home IV antibiotics, dosage and medication TBD. Referral sent to [facility] in [place]. CM to follow. Date Signed: 07/07/2017 03:18 PM Electronically Signed By:RUSLAN Santana BC CM Progress Note CM Note CM Note Notes: Chart reviewed. Patient is a 22 year old male C-7 paraplegic who lives with parents. He is wheelchair bound. 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 [facility] is willing to accept though medicaid co-payments may exist Patient is aware of need for antibiotics. No therapies ordered but patient likely at baseline. CM to follow. Plan home with home infusion. Date Signed: 07/08/2017 11:30 AM Electronically Signed By:Jeanette Coyle RN BC CM Progress Note CM Note CM Note Notes: Per Dr. Kay, patient would benefit from closed wound vac system to maintain integrity of wound until seen in follow up. Orders faxed to [facility]. Confirmed receipt Unlikely approval due to wound closure after I&D and insurance. Will follow. Date Signed: 07/08/2017 03:12 PM Electronically Signed By:Jeanette Coyle RN BC CM Progress Note CM Note CM Note Notes: Patient medically cleared for discharge to home with infusion services and [facility] RN, wound vac deferred per MD at this point and patient has follow up on Sunday. Address and phone verified with patient. Final orders via [employer]. Home with services. Date Signed: 07/09/2017 02:22 PM Electronically Signed By:Jeanette Coyle RN Intervention Information
== END 2017-07-09 14:41 | disposition home health service (06) | DRG 478 ==
LOC: F3N 13:24 → EDSTATUS 18:30
PROVIDERS: ADMIT Orthopaedic Surgery Hand Surgery; ATTEND Orthopaedic Surgery Hand Surgery
PROC: 2W1AX6Z Compression of Right Upper Arm using Pressure Dressing (ICD-10-PCS; principal; 2017-07-07 10:00)
PROC: 0M930ZZ Drainage of Right Elbow Bursa and Ligament, Open Approach (ICD-10-PCS; principal; 2017-07-07 10:00)
PROC: 0PBK0ZX Excision of Right Ulna, Open Approach, Diagnostic (ICD-10-PCS; principal; 2017-07-07 10:00)
PROC: 02HV33Z Insertion of Infusion Device into Superior Vena Cava, Percutaneous Approach (ICD-10-PCS; 2017-07-09)
DX: M86.9 Osteomyelitis, unspecified (principal); M71.121 Other infective bursitis, right elbow; L98.494 Non-pressure chronic ulcer of skin of other sites with necrosis of bone; G82.20 Paraplegia, unspecified; N31.9 Neuromuscular dysfunction of bladder, unspecified; B95.61 Methicillin susceptible Staphylococcus aureus infection as the cause of diseases classified elsewhere; Z86.19 Personal history of other infectious and parasitic diseases
CPT/HCPCS: 97162-GP; 97166-GO; 97535-GO; C1751; J0690; J0696; J1885; J2250; J2704; J3010

== ENCOUNTER 2017-07-27 13:59 | Day surgery (SDC) | payer MEDICAID, OTHER ==
[2017-07-27] MEDS ORDERED: ceFAZolin 2 GM/SWFI 2 GM/20 ML SYR IVP ONE (14:10)
[2017-07-27] MEDS ORDERED: VANCOMYCIN HCL/NORMAL SALINE 250 ML IV ONE (14:10)
[2017-07-27] MEDS ORDERED: LR 1,000 ML IV ONE (14:11)
[2017-07-27] MEDS ORDERED: VANCOMYCIN 1 GM VIAL ONE (14:21)
[2017-07-27] MEDS ORDERED: BUPIVACAINE/EPI 0.5% 30 ML SDV ONE (14:21)
[2017-07-27 14:26] VITALS: PULSE 62
--- NOTE | 2017-07-27 14:29 | PDANEPAE ---
ANE History of Present Illness I&D r elbow ANE Past Medical History - Cardiovascular History Hx Hypertension: No Hx Arrhythmias: No Hx Chest Pain: No Hx Coronary Artery / Peripheral Vascular Disease: No Hx CHF / Valvular Disease: No Hx Palpitations: No - Pulmonary History Hx COPD: No Hx Asthma/Reactive Airway Disease: No Hx Recent Upper Respiratory Infection: No Hx Oxygen in Use at Home: No Hx Sleep Apnea: No Sleep Apnea Screening Result - Last Documented: Negative Pulmonary History Comment: limited ability to cough due to spinal cord injury - Neurologic History Hx Cerebrovascular Accident: No Hx Seizures: No Hx Dementia: No Neurologic History Comment: spinal cord injury - Endocrine History Hx Diabetes: No - Renal History Hx Renal Disorders: Yes Renal History Comment: neurogenic bladder - Liver History Hx Hepatic Disorders: No - Neurological & Psychiatric Hx Hx Neurological and Psychiatric Disorders: No - Cancer History Hx Cancer: No - Congenital Disorder History Hx Congenital Disorders: No - GI History Hx Gastrointestinal Disorders: Yes Gastrointestinal History Comment: acid reflux - Other Health History Other Health History: USING RX FOR CONCENTRATION AT SCHOOL. PE 2012. PT HAS PICC LINE - Chronic Pain History Chronic Pain: Yes - Surgical History Prior Surgeries: DEBRIDEMENT R ELBOW. neck C5-T1 2012. CYSTO WITH bladder botox X2 ANE Review of Systems Review of Systems: - Exercise capacity METS (RN): 2 METS ANE Patient History - Allergies Allergies/Adverse Reactions: No Known Allergies Allergy (Verified 07/07/17 08:16) - Home Medications Home medications: home medication list seen and reviewed Home Medications: Solifenacin Succinate [Vesicare] 10 mg PO DAILY 07/06/17 [Last Taken 07/26/17 08 :00] Amphet Asp and D/Amphet [Adderall 10 MG (*)] 10 mg PO BID 07/07/17 [Last Taken 07/26/17 08:00] - NPO status NPO Since - Liquids (Date): 07/27/17 NPO Since - Liquids (Time): 11:00 NPO Since - Solids (Date): 07/27/17 NPO Since - Solids (Time): 07:00 - Anes Hx Anes Hx: no prior problems - Smoking Hx Smoking Status: Never smoked - Alcohol Use Alcohol Use: None - Family Anes Hx Family Anes Hx: none Family Hx Anesthesia Complications: none ANE Labs/Vital Signs - Vital Signs Blood Pressure: 106/55 Heart Rate: 62 Respiratory Rate: 15 O2 Sat (%): 96 Height: 187.96 cm Weight: 61.235 kg ANE Physical Exam - Airway Neck exam: FROM - Pulmonary Pulmonary: no respiratory distress - Cardiovascular Cardiovascular: regular rate and rhythym - ASA Status ASA Status: II ANE Anesthesia Plan Anesthesia Plan: GA w LMA
[2017-07-27] MEDS ORDERED: MIDAZOLAM 2 MG/2 ML VIAL ONE (14:40)
[2017-07-27] MEDS ORDERED: LIDOCAINE 2% 100 MG/5 ML SYR ONE (14:42)
[2017-07-27] MEDS ORDERED: LIDOCAINE 2% JELLY 5 ML TUBE ONE (14:42)
[2017-07-27] MEDS ORDERED: DEXAMETHASONE 4 MG/ML VIAL ONE (14:42)
[2017-07-27] MEDS ORDERED: ONDANSETRON 4 MG/2 ML VIAL ONE (14:42)
[2017-07-27] MEDS ORDERED: PROPOFOL/EMULSION 500 MG/50 ML BOTTLE IV ONE (14:42)
[2017-07-27] MEDS ORDERED: fentaNYL 100 MCG/2 ML INJ ONE ×2 (14:42→16:26)
[2017-07-27] MEDS ORDERED: ceFAZolin 1 GM VIAL ONE ×2 (15:18)
[2017-07-27] MEDS ORDERED: MEPERIDINE 25 MG/ML SYR IVP PRN (15:29)
[2017-07-27] MEDS ORDERED: ACETAMINOPHEN 500 MG TAB PO PRN (15:29)
[2017-07-27] MEDS ORDERED: LR 500 ML IV PRN (15:29)
[2017-07-27] MEDS ORDERED: HYDROCODONE/APAP 5/325 TAB PO PRN (15:29)
[2017-07-27] MEDS ORDERED: OXYCODONE/APAP 5/325 TAB PO PRN (15:29)
[2017-07-27] MEDS ORDERED: PHENYLEPHRINE HCL 100 MCG/ML SYR IVP PRN (15:29)
[2017-07-27] MEDS ORDERED: ONDANSETRON 4 MG/2 ML VIAL IVP PRN (15:29)
[2017-07-27] MEDS ORDERED: LABETALOL HCL 5 MG/ML 20 ML MDV IVP PRN (15:29)
[2017-07-27] MEDS ORDERED: NALOXONE HCL 0.4 MG/ML INJ IVP PRN (15:29)
[2017-07-27] MEDS ORDERED: ALBUTEROL 3 ML DEYVIAL IH PRN (15:29)
[2017-07-27] MEDS ORDERED: DEXAMETHASONE 4 MG/ML VIAL IVP PRN (15:29)
[2017-07-27] MEDS ORDERED: METOCLOPRAMIDE 10 MG/2 ML VIAL IVP PRN (15:29)
[2017-07-27] MEDS ORDERED: PROMETHAZINE HCL 25 MG/ML INJ IVP PRN (15:29)
[2017-07-27] MEDS ORDERED: PHENYLEPHRINE HCL 100 MCG/ML SYR ONE (15:48)
[2017-07-27] MEDS ORDERED: BUPIVACAINE 0.5% 10 ML SDV ONE (16:03)
[2017-07-27] MEDS: fentaNYL 100 MCG/2 ML INJ IVP PRN ×2 (16:30→16:39)
[2017-07-27] MEDS ORDERED: HYDROCODONE/APAP 5/325 TAB ONE (16:50)
--- NOTE | 2017-07-27 17:18 | POSTANESTH ---
Post Anesthetic Evaluation Cardiovascular Status: Normal, Stable Respiratory Status: Normal, Stable Level of Consciousness/Mental Status: Can Participate in Eval Pain Control: Adequate, Prn Tx Ordered Nausea/Vomiting Control: Adequate, Prn Tx Ordered Complications Possibly Related to Anesthesia: None Noted
[2017-07-27 17:50] VITALS: RESP 11
[2017-07-27 17:54] VITALS: TEMP 97.5
[2017-07-27 18:46] VITALS: BP 115/76; O2SAT 97
--- NOTE | 2017-07-28 14:11 | GOP ---
[f rep st] OPERATIVE REPORT DATE OF OPERATION: 07/27/2017 SURGEON: Amrit Kay MD ANESTHESIA: General. PREOPERATIVE DIAGNOSIS: Right open elbow wound. POSTOPERATIVE DIAGNOSIS: Right open elbow wound. PROCEDURE PERFORMED: 1. Irrigation and debridement of right elbow wound. 2. Delayed complex closure of right elbow wound. FINDINGS: INDICATIONS: The patient is a 22-year-old male who is a C7 paraplegic. The issues with his elbow first began last summer when he had out of his wheelchair , developed aseptic olecranon bursitis, which was irrigated and debrided several times, and he developed an open elbow wound. Then an MRI was done, which showed osteomyelitis of the elbow. I took the patient to surgery about 2 weeks ago for cultures of the wound, for IV antibiotic treatment of the osteomyelitis. The wound was debrided and closed. However, over time, the wound broke down, and part of the issue with his wound is that the patient is very reliant on his upper extremity for transfer and function because he is a paraplegic. I discussed with him that the wound will likely not heal unless his elbow is splinted to protect it. He understood. Because of his open elbow wound, he is indicated for irrigation, debridement, and closure. I discussed several options with him, a wound VAC treatment as an option; however he underwent vac treatment already, and has failed leaving it with an open wound. I discussed with him that if the wound is very infected, that I was not able to close it. Discussed with him the risks and benefits of the surgery, including pain, bleeding infection, risks of anesthesia, and damage to surrounding structures, elbow stiffness, continued wound healing problems. I think the main risk of this wound is that it could continue to fall apart. He understood that he will continue to have issues with this wound. May require plastic surgery consultation and advanced wound coverage, including flaps in the future if this does not heal. He has a PICC line . After discussing risks and benefits, they wished to proceed. DESCRIPTION OF PROCEDURE: The patient was in the preoperative holding area. Gave him an opportunity for asking more questions. All their questions were answered. He was then transferred to the operative suite. In the operative suite, great care was taken to pad all bony prominences on the gurney prior to the induction of anesthesia. General anesthesia was induced by the anesthesia team. Time-out was called, including surgical and anesthesia teams, confirming the surgical site and procedure to be performed. The right upper extremity was prepped and draped in the usual sterile fashion. Antibiotics were withheld until the wound was examined and possible cultures were taken. After prepping and draping, I examined the wound, extended it several centimeters, both proximally and distally. There was some serous drainage arising from the wound ; however, it did not appear grossly infected. After prepping it sterilely, the cultures were taken. After cultures were taken, the antibiotics were given. I carefully cleaned out the wound of any fibrinous exudate. This left the wound with clean granulation tissue. The skin edges were excised that appeared atrophic and unhealthy, leaving healthy, bleeding skin edges, then irrigated it with many liters of sterile saline, and the wound was then closed in layers with quilting-type stitches and deep dermal-type stitches, bringing together the space to close off the space. A drain was left in. After closing the space in several layers, the final layer was a running 3- 0 nylon suture. A splint was applied with the elbow in slight extension. POSTOPERATIVE PLAN: He will f/u in clinic next week for a wound check. Postoperatively in the PACU the drain was removed as it did not hold suction. /[id number]/MODL MTDD
== END 2017-07-27 19:10 | disposition home or self-care (01) ==
LOC: FSGY 13:59
PROVIDERS: ATTEND Orthopaedic Surgery Hand Surgery
PROC: 0JDD0ZZ Extraction of Right Upper Arm Subcutaneous Tissue and Fascia, Open Approach (ICD-10-PCS; principal; 2017-07-27 15:30)
DX: M86.8X2 Other osteomyelitis, upper arm (principal); T81.89XD Other complications of procedures, not elsewhere classified, subsequent encounter; G82.20 Paraplegia, unspecified; Z79.2 Long term (current) use of antibiotics; Z86.19 Personal history of other infectious and parasitic diseases; Z99.3 Dependence on wheelchair
CPT/HCPCS: J0690; J1100; J2001; J2250; J2270; J2370; J2405; J2704; J3010; J3370

== ENCOUNTER → 2017-10-20 | Outpatient (CLI) | payer MEDICAID, OTHER ==
[~2017-10-20] MED LIST changes: +GADOBUTROL 10 ML VIAL IVP ONE; -LR 1,000 ML IV ONE; -ceFAZolin 2 GM/SWFI 2 GM/20 ML SYR IVP ONE
== END ==
LOC: FIMAGING 10:14
DX: L03.113 Cellulitis of right upper limb (principal)
CPT/HCPCS: A9585